=== PATIENT | female | born 1980 | race Two or more races ===

== ENCOUNTER 2018-02-11 09:40 | Outpatient (CLI) | payer OTHER | END 2018-02-11 10:02 | disposition home or self-care (01) | LOC: RAD 501 09:40 | DX: J44.9 Chronic obstructive pulmonary disease, unspecified (principal) ==

== ENCOUNTER 2020-05-24 09:49 | Outpatient (CLI) | payer OTHER | END 2020-05-24 10:00 | disposition home or self-care (01) | LOC: SONOGRAMA 09:49 | PROVIDERS: ATTEND Internal Medicine Endocrinology, Diabetes & Metabolism | DX: E04.8 Other specified nontoxic goiter (principal) ==

== ENCOUNTER 2020-12-27 02:57 | Emergency (ER) | payer OTHER ==
[~2020-12-27] VITALS: Ht 165.1 cm; Wt 69.9 kg
[2020-12-27] MEDS ORDERED: SYNTHROID100 MCG (03:13)
== END 2020-12-27 06:44 | disposition home or self-care (01) ==
LOC: ER 02:57
DX: L73.8 Other specified follicular disorders (principal); R51.9 Headache, unspecified